=== PATIENT | male | born 1970 | race African-American/Black ===

== ENCOUNTER 2020-08-10 17:43 | Emergency (ER) | payer SELFPAY ==
[~2020-08-10] VITALS: Ht 177.8 cm; Wt 79.5 kg
[2020-08-10 18:01] VITALS: BP 193/116
== END 2020-08-10 20:39 | disposition left against medical advice (07) ==
LOC: EMS 17:43
DX: S01.81XA Laceration without foreign body of other part of head, initial encounter (principal); Z53.21 Procedure and treatment not carried out due to patient leaving prior to being seen by health care provider; X58.XXXA Exposure to other specified factors, initial encounter